=== PATIENT | male | born 1970 | race Caucasian/White ===

== ENCOUNTER 2024-10-18 09:43 | Observation (INO) | payer OTHER ==
[~2024-10-18] VITALS: Ht 182.9 cm; Wt 131.1 kg
[2024-10-18] MEDS: NS (Normal Saline) 0.9% 1,000 ML IV ONE (09:55)
[2024-10-18 10:12] LABS: HEMATOCRIT 44.9 % (42.0-52.0); HEMOGLOBIN 15.3 g/dl (13.5-17.5); MEAN CORPUSCULAR HEMOGLOBIN 31.4 pg (27.0-33.0); MEAN CORPUSCULAR HGB CONC 34.1 g/dl (32.0-36.5); PLATELET COUNT, AUTOMATED 252 10^3/uL (150-450); RED BLOOD COUNT 4.88 10^6/uL (4.30-6.10); WHITE BLOOD COUNT 8.5 10^3/uL (4.0-10.0)
[2024-10-18] MEDS ORDERED: AMLO10TA PO (10:17)
[2024-10-18] MEDS ORDERED: ASPI81TA26 PO (10:17)
[2024-10-18] MEDS ORDERED: ROSU5TAB49 PO (10:17)
[2024-10-18 10:35] LABS: CK-MB VALUE MASS 3.1 NG/ML (<3.6)
[2024-10-18 10:37] LABS: BLOOD UREA NITROGEN 20 MG/DL (9-23); CALCIUM LEVEL 9.3 MG/DL (8.5-10.1); CARBON DIOXIDE LEVEL 26 MMOL/L (20-31); CHLORIDE LEVEL 109 MMOL/L (98-107); GLOMERULAR FILTRATION RATE > 60.0 (>56); GLUCOSE, FASTING 115 MG/DL (60-100); MAGNESIUM LEVEL 2.2 MG/DL (1.8-2.4); POTASSIUM SERUM 4.2 MMOL/L (3.5-5.1); SODIUM LEVEL 144 MMOL/L (136-145)
[2024-10-18 10:43] LABS: CPK CREATINE PHOSPHOKINASE 308 U/L (46-171)
[2024-10-18] MEDS: NS (Normal Saline) 0.9% 1,000 ML IV SCH (13:10)
[2024-10-18] MEDS: MORPHINE 2 MG/ML 1ML VIAL IV ONE (13:21)
[2024-10-18] MEDS: propofoL 200 MG/20 ML VIAL IV.PROC PRN (13:44)
[2024-10-18] MEDS: LR 1,000 ML IV SCH (15:30)
[2024-10-18] MEDS ORDERED: MAALOX 30 ML SUSP *UDC PO PRN (15:35)
[2024-10-18] MEDS ORDERED: MOM 30ML SUSPENSION UDC PO PRN (15:35)
[2024-10-18] MEDS ORDERED: HOME MED LIST COMPLETE! XX SCH (16:00)
[2024-10-18 17:08] LABS: ALBUMIN 4.1 G/DL (3.2-5.2); BILIRUBIN,DIRECT 0.2 MG/DL (<0.4); BILIRUBIN,TOTAL 0.7 MG/DL (0.3-1.2); TOTAL PROTEIN 7.5 G/DL (5.7-8.2)
[2024-10-18 17:09] LABS: CK-MB VALUE MASS 7.9 NG/ML (<3.6); MB/CK RELATIVE INDEX 0.7 (< OR =4)
[2024-10-18 17:11] LABS: FREE T4 0.96 NG/DL (0.89-1.76); THYROID STIMULATING HORMONE 0.954 uIU/ML (0.55-4.78)
[2024-10-18 17:35] VITALS: BP 132/71; TEMP 98.2; O2SAT 95
[2024-10-18] MEDS: METOPROLOL TART 25 MG TABLET PO SCH (18:33)
[2024-10-18] MEDS: ACETAMINOPHEN 325 MG TAB PO PRN (18:38)
[2024-10-18] MEDS ORDERED: PILL CUTTER 1 EACH XX PRN (19:05)
[2024-10-18 19:22] VITALS: BP 124/80; TEMP 98.4; O2SAT 96
[2024-10-18 19:25] LABS: INR 0.97; PARTIAL THROMBOPLASTIN TIME 26.3 SECONDS (24.8-34.2); PROTHROMBIN TIME 13.2 SECONDS (12.5-14.5)
[2024-10-18 20:00] VITALS: O2SAT 96
[2024-10-18] MEDS: DOCUSATE SODIUM 100MG CAPSULE PO SCH (20:23)
[2024-10-18] MEDS: APIXABAN 5 MG TAB (ELIQUIS) PO SCH (20:26)
[2024-10-18] MEDS: PERCOCET 5MG/325MG TAB PO PRN (20:27)
[2024-10-18 23:04] VITALS: BP 119/62; TEMP 97.4; O2SAT 95
[2024-10-19] VITALS: O2SAT 96
[2024-10-19 03:27] VITALS: BP 120/76; TEMP 98.8; O2SAT 96
[2024-10-19 05:57] LABS: BASO % 0.3 % (0.0-1.0); EOS % 0.1 % (0.0-3.0); HEMATOCRIT 40.4 % (42.0-52.0); HEMOGLOBIN 13.7 g/dl (13.5-17.5); LYMPH # 2.1 10^3/uL (1.5-5.0); MEAN CORPUSCULAR HEMOGLOBIN 31.4 pg (27.0-33.0); MEAN CORPUSCULAR HGB CONC 33.9 g/dl (32.0-36.5); MEAN CORPUSCULAR VOLUME 92.4 fl (80.0-96.0); MONO # 1.2 10^3/uL (0.0-0.8); MONO % 11.6 % (2.0-8.0); NEUTROPHILS # 7.2 10^3/uL (1.5-8.5); NEUTROPHILS % 67.7 % (36.0-66.0); PLATELET COUNT, AUTOMATED 220 10^3/uL (150-450); RED BLOOD COUNT 4.37 10^6/uL (4.30-6.10); WHITE BLOOD COUNT 10.6 10^3/uL (4.0-10.0)
[2024-10-19 06:28] LABS: BLOOD UREA NITROGEN 14 MG/DL (9-23); CALCIUM LEVEL 8.3 MG/DL (8.5-10.1); CARBON DIOXIDE LEVEL 25 MMOL/L (20-31); CHLORIDE LEVEL 110 MMOL/L (98-107); CREATININE FOR GFR 0.79 MG/DL (0.70-1.30); GLOMERULAR FILTRATION RATE > 60.0 (>56); GLUCOSE, FASTING 110 MG/DL (60-100); POTASSIUM SERUM 3.9 MMOL/L (3.5-5.1); SODIUM LEVEL 142 MMOL/L (136-145)
[2024-10-19 06:29] LABS: CPK CREATINE PHOSPHOKINASE 1270 U/L (46-171)
[2024-10-19 07:44] VITALS: BP 139/66; TEMP 98.5; O2SAT 93
[2024-10-19] MEDS: ASPIRIN 81MG ENTERIC TABLET PO SCH (08:02)
[2024-10-19] MEDS: ROSUVASTATIN 10 MG TAB (CRESTOR) PO SCH (08:02)
[2024-10-19] MEDS ORDERED: ENOXAPARIN 40MG/0.4ML SYRINGE (J1650 PER 10MG) SC SCH (09:00)
[2024-10-19 10:41] LABS: KETONE, URINE AUTO RFX NEGATIVE (NEGATIVE); LEUKOCYTE ESTERASE UR AUTO RFX NEGATIVE (NEGATIVE); MUCUS, URINE RFX SMALL (NEGATIVE); NITRITE, URINE AUTO RFX NEGATIVE (NEGATIVE); RBC, URINE AUTO RFX 1 /HPF (0-3); SQUAM EPITHELIAL CELL UR AURFX 0 /HPF (0-6); WBC, URINE AUTO RFX 0 /HPF (0-3)
[2024-10-19] MEDS ORDERED: ELIQ5TAB PO (11:00)
[2024-10-19] MEDS ORDERED: METO1TAB87 PO (11:00)
[2024-10-19] MEDS ORDERED: OXYC1TAB23 PO (11:00)
== END 2024-10-19 12:48 | disposition home or self-care (01) ==
LOC: EDBD 09:43 → M ED 09:43 → M ED INP 09:44 → M PCU 17:30
PROVIDERS: ADMIT Internal Medicine; ATTEND Internal Medicine
DX: T75.4XXA Electrocution, initial encounter (principal); M62.82 Rhabdomyolysis; S43.014A Anterior dislocation of right humerus, initial encounter; I48.91 Unspecified atrial fibrillation; D72.829 Elevated white blood cell count, unspecified; I10 Essential (primary) hypertension; E78.5 Hyperlipidemia, unspecified; Z79.899 Other long term (current) drug therapy; Z79.82 Long term (current) use of aspirin; Z79.01 Long term (current) use of anticoagulants